=== PATIENT | female | born 1955 | race Caucasian/White ===

== ENCOUNTER 2022-07-12 15:15 | Emergency (ER) | payer MEDICARE, MEDICAID, SELFPAY ==
[2022-07-12] VITALS (31 sets, daily range): BP systolic 138–232; BP diastolic 81–118; PULSE 69–87; RESP 18; TEMP 36.6; O2SAT 96–100; BMI 26.0
--- NOTE | 2022-07-12 18:28 | CT_ITS ---
Patient: SONA PALOMARES Facility:?[facility] Patient ID:?[id number] Site Patient ID:?[id number]. Site :?1955 Study:?CT-Neck Angio Angio CTA HEAD AND NECK-07/12/2022 7:55:57 PM Ordering Physician:?Cherry Dumont Final Report: INDICATION: Acute stroke, left facial numbness, headache, hypertension. TECHNIQUE: CTA neck with contrast bolus tracking and 3D MIP reconstruction. FINDINGS: There are very subtle irregularities of the right ICA that are reminiscent of fibromuscular dysplasia, versus motion artifact. There is no significant carotid or vertebral artery stenosis or dissection. The soft tissues of the neck are within normal limits. The cervical spine is in normal alignment. IMPRESSION: No significant carotid or vertebral artery stenosis or dissection. Please note that all CT scans at this facility use dose modulation, iterative reconstruction, and/or weight-based dosing when appropriate to reduce radiation dose to as low as reasonably achievable. Dictated by Juan F Romero MD @ 07/13/2022 8:20:02 AM Signed by:?Juan F Romero MD @07/13/2022 8:20:02 AM (Electronic Signature)
--- NOTE | 2022-07-12 18:28 | CT_ITS ---
Patient: SONA PALOMARES Facility:?[facility] Patient ID:?[id number] Site Patient ID:?[id number]. Site :?1955 Study:?CT-Head Angio Angio CTA HEAD AND NECK-07/12/2022 7:55:08 PM Ordering Physician:Emerald Dumont Final Report: INDICATION: Acute stroke, left facial numbness, headache, hypertension. TECHNIQUE: CTA head with contrast bolus tracking and 3D MIP reconstruction. FINDINGS: There is normal opacification of the intracranial vasculature. There is no large vessel occlusion. No aneurysm is identified. IMPRESSION: Unremarkable head CTA. Please note that all CT scans at this facility use dose modulation, iterative reconstruction, and/or weight-based dosing when appropriate to reduce radiation dose to as low as reasonably achievable. Dictated by Juan F Romero MD @ 07/13/2022 8:18:21 AM Signed by:?Juan F Romero MD @07/13/2022 8:18:21 AM (Electronic Signature)
--- NOTE | 2022-07-12 18:32 | ED.GENADULT ---
HPI - General Adult General Time Seen by Provider: 18:25 Date Seen: 07/12/22 Chief complaint: Headache/Migraine Stated complaint: Head Pain/face Numbness Time Seen by Provider: 07/12/22 18:17 Source: patient and RN notes reviewed Mode of arrival: ambulatory Limitations: no limitations History of Present Illness HPI narrative: Patient is a 67-year-old female coming in with concern of her left face being numb earlier today, like she had had anesthesia but now resolved. Last week she had this episode of severe intense pain in her head that lasted for minutes. It was quite extreme. It went away and did not reoccur. Today though she noticed a dull left head ache and then some sharp shooting pains in the left side of her head at times. The left facial numbness is gone now. She has noted no visual changes, no speech problems, no difficulty with ambulation or using her arms. She had no fevers or chills. She had a cardiac ablation before and is on atorvastatin for her cholesterol. She takes a full aspirin daily. She is never been diagnosed with high blood pressure hypertension. She is having absolutely no chest pain, no abdominal pain with this. Related Data Allergies Allergy/AdvReac Type Severity Reaction Status Date / Time morphine Allergy Verified 07/12/22 15:38 Review of Systems Status of ROS: Reports: 10 or more systems reviewed and unremarkable except as noted in History and below PFSH PFS Social History Smoking Status: Never smoker Do you use any of these nicotine containing products: None Second hand tobacco smoke exposure: No How often do you have a drink containing alcohol: 2-4 times a month How many standard drinks containing alcohol do you have on a typical day: 1 or 2 How often do you have six or more drinks on one occasion: Less than monthly AUDIT-C Alcohol total score: 3 Non-prescribed substance use: denies use service: No Exam Const: Vital Signs, click to edit/add: Vital Signs - 24 hr 07/12/22 15:39 07/12/22 18:28 07/12/22 18:05 Temperature 98 F Pulse Rate Pulse Rate [Pulse Oximeter] 78 85 Respiratory Rate 18 Blood Pressure Blood Pressure [Ri ght Upper Arm] 182/86 H 232/116 H Pulse Oximetry 99 99 Oxygen Delivery Me thod Room Air 07/12/22 18:15 07/12/22 18:30 07/12/22 18:32 Temperature Pulse Rate 82 77 76 Pulse Rate [Pulse Oximeter] Respiratory Rate Blood Pressure 207/118 H Blood Pressure [Ri ght Upper Arm] Pulse Oximetry 97 100 98 Oxygen Delivery Me thod 07/12/22 18:42 07/12/22 18:45 07/12/22 18:46 Temperature Pulse Rate 74 76 81 Pulse Rate [Pulse Oximeter] Respiratory Rate Blood Pressure 179/91 H 170/86 H Blood Pressure [Ri ght Upper Arm] Pulse Oximetry 98 99 98 Oxygen Delivery Me thod 07/12/22 18:51 07/12/22 18:30 07/12/22 18:52 Temperature Pulse Rate 75 70 Pulse Rate [Pulse Oximeter] 76 Respiratory Rate Blood Pressure 170/86 H Blood Pressure [Ri ght Upper Arm] 207/118 H Pulse Oximetry 98 100 Oxygen Delivery Me thod 07/12/22 18:56 07/12/22 18:57 07/12/22 19:00 Temperature Pulse Rate 71 69 73 Pulse Rate [Pulse Oximeter] Respiratory Rate Blood Pressure 154/81 H Blood Pressure [Ri ght Upper Arm] Pulse Oximetry 97 98 98 Oxygen Delivery Me thod 07/12/22 19:01 07/12/22 19:15 07/12/22 19:16 Temperature Pulse Rate 71 73 Pulse Rate [Pulse Oximeter] Respiratory Rate Blood Pressure 152/82 H 152/82 H Blood Pressure [Ri ght Upper Arm] Pulse Oximetry 99 96 97 Oxygen Delivery Me thod 07/12/22 19:17 07/12/22 19:30 07/12/22 19:32 Temperature Pulse Rate 69 72 Pulse Rate [Pulse Oximeter] Respiratory Rate Blood Pressure 151/82 H Blood Pressure [Ri ght Upper Arm] Pulse Oximetry 99 96 96 Oxygen Delivery Me thod 07/12/22 19:58 07/12/22 20:00 07/12/22 20:01 Temperature Pulse Rate 82 87 80 Pulse Rate [Pulse Oximeter] Respiratory Rate Blood Pressure 163/84 H 154/81 H Blood Pressure [Ri ght Upper Arm] Pulse Oximetry 97 97 97 Oxygen Delivery Me thod Documenting provider has reviewed patient's vital signs: yes (When I am in with her her most recent blood pressures in the 230/116 range) Common normals: no apparent distress, average body habitus, oriented x3, no limitations, healthy appearing, alert and well nourished General appearance: cooperative, comfortable and well kempt HENMT: Common normals: normocephalic, head/scalp atraumatic, hearing grossly normal bilaterally, external ears normal, EAC's normal, TM's normal bilaterally, external nose normal, nasal mucous membranes and turbinates normal, moist oral mucous membranes, oropharynx normal, dentition normal and gingiva normal Head and scalp: normocephalic and atraumatic Nose: external nose normal and nasal mucous membranes and turbinates normal External ear: external ears normal External auditory canal: EAC's normal Tympanic membrane: TM's normal bilaterally Eye: Common normals: PERRL, EOMs intact bilaterally, conjunctivae normal and no scleral icterus Conjunctiva: conjunctiva(e) normal Pupil: PERRL Neck & C-Spine: Common normals: full ROM, no lymphadenopathy, supple, no meningeal signs, no JVD and thyroid normal Thyroid: thyroid normal Resp: Common normals: normal respiratory effort, no retractions, no use of accessory muscles and clear to auscultation bilaterally Auscultation: clear to auscultation bilaterally Cardio: Common normals: no JVD, regular rate, regular rhythm, S1 normal heart sound, S2 normal heart sound, no gallops, no clicks and no murmurs Rate: regular rate Rhythm: regular rhythm Heart sounds: S1 normal and S2 normal GI: Common normals: Normal to inspection, nondistended, normoactive bowel sounds present, soft to palpation, non-tender, no hepatosplenomegaly and no masses Palpation: soft and no hepatosplenomegaly Neuro: Common normals: oriented x3, CN's II-XII intact bilaterally, moves all extremities, no focal motor deficits, no sensory deficits noted and gait normal Sensorium/orientation: alert Meningeal signs: no meningeal signs Speech: speech normal Psych: Appearance: well kempt Course Course Hospital Course: A.m. concerned that this patient has elevated blood pressure could represent a vascular phenomenon like dissection. We will do a head CT and then follow through with CTA of head and neck. I am going to give her 5 mg IV labetalol and see how she tolerates this, can give further doses if need be. She has no evidence of any stroke at this point and that is not my primary concern for her. Will do appropriate labs. Reevaluation(s) Reevaluation #1: Reviewed with patient her normal head CT and the normal angio imaging on CT of her head neck. Her daughter is here now to. She did go on her mom's medical chart and she actually is on valsartan/hydrochlorothiazide for hypertension. Patient was remembering her 's medications. She still has a bit of a left posterior achy headache but her face no longer feels flushed. Her blood pressure is much improved. We did discuss primary headache disorder possibly causing her to become anxious and have pain, labile hypertension which can develop wit patients. In any event her left headache does seem like this might be a primary headache. Her blood pressure is back into the 130s, 150s systolic which is much improved. We will do 15 mg IV Toradol for her headache and then she wants to try to go home. I think this is reasonable. She has an appointment with her provider tomorrow which she should keep. They can follow-up on her blood pressure and see if her medication needs any adjusting. Time: 20:32 Vital Signs Vital signs: Initial Vital Signs Temperature 98 F 07/12/22 15:39 Temperature Source Temporal Artery Scan 07/12/22 15:39 Pulse Rate 78 07/12/22 15:39 Pulse Rhythm 07/12/22 15:39 Respiratory Rate 18 07/12/22 15:39 Blood Pressure 182/86 H 07/12/22 15:39 Blood Pressure Mean 118 07/12/22 15:39 Blood Pressure Position Sitting 07/12/22 15:39 Pulse Oximetry 99 07/12/22 15:39 Oxygen Delivery Method 07/12/22 15:39 Vital Signs Temperature 98 F 07/12/22 15:39 Pulse Rate 78 07/12/22 15:39 Respiratory Rate 18 07/12/22 15:39 Blood Pressure 182/86 H 07/12/22 15:39 Pulse Oximetry 99 07/12/22 15:39 Oxygen Delivery Method 07/12/22 15:39 Temperature 98 F 07/12/22 15:39 Pulse Rate 80 07/12/22 20:01 Respiratory Rate 18 07/12/22 15:39 Blood Pressure 154/81 H 07/12/22 20:01 Pulse Oximetry 97 07/12/22 20:01 Oxygen Delivery Method 07/12/22 15:39 Medical Decision Making Lab Data Lab results reviewed: Yes I reviewed the patient's lab results Labs: Lab Results 07/12/22 07/12/22 07/12/22 Range/Units 18:30 18:30 18:30 WBC 6.78 (4.50-11.00) K/uL RBC 4.86 (4.00-5.20) m/uL Hgb 14.5 (12.0-16.0) gm/dL Hct 43.4 (33.0-51.0) % MCV 89 (80-100) fL MCH 30 (26-34) pg MCHC 33 (32-36) gm/dL RDW Coeff of Nayan 13.1 (11.5-15.5) % Plt Count 331 (140-440) K/uL Neut % (Auto) 59.6 (42.0-72.0) % Lymph % (Auto) 28.6 (20-44) % Lipscomb % (Auto) 7.8 (0.0-11.0) % Eos % (Auto) 2.7 (0.0-7.0) % Baso % (Auto) 1.2 (0.0-3.0) % Neut # (Auto) 4.04 (1.7-7.0) K/uL Lymph # (Auto) 1.94 (0.90-2.90) K/uL Lipscomb # (Auto) 0.50 (0.00-0.90) K/UL Eos # (Auto) 0.18 (0.00-0.50) K/uL Baso # (Auto) 0.08 (0.00-0.30) K/uL Abs Immat Gran (auto) 0.01 (0.00-0.30) K/uL ESR (2-20) mm/hr D-Dimer Quant (PE/DVT) 0.67 H (0.00-0.50) ug/ml Sodium 139 (135-149) mmol/L Potassium 3.4 L (3.6-5.1) mmol/L Chloride 104 (96-114) mmol/L Carbon Dioxide 23 (20-32) mmol/L BUN 13 (7-30) mg/dL Creatinine 0.6 (0.5-1.5) mg/dL Estimated Creat Clear 52.51 Estimated GFR 100 ml/min Glucose 108 (60-115) mg/dL Calcium 10.1 (8.4-10.6) mg/dL C-Reactive Protein < 0.5 L (0.5-1.0) mg/dL 07/12/22 Range/Units 18:31 WBC (4.50-11.00) K/uL RBC (4.00-5.20) m/uL Hgb (12.0-16.0) gm/dL Hct (33.0-51.0) % MCV (80-100) fL MCH (26-34) pg MCHC (32-36) gm/dL RDW Coeff of Nayan (11.5-15.5) % Plt Count (140-440) K/uL Neut % (Auto) (42.0-72.0) % Lymph % (Auto) (20-44) % Lipscomb % (Auto) (0.0-11.0) % Eos % (Auto) (0.0-7.0) % Baso % (Auto) (0.0-3.0) % Neut # (Auto) (1.7-7.0) K/uL Lymph # (Auto) (0.90-2.90) K/uL Lipscomb # (Auto) (0.00-0.90) K/UL Eos # (Auto) (0.00-0.50) K/uL Baso # (Auto) (0.00-0.30) K/uL Abs Immat Gran (auto) (0.00-0.30) K/uL ESR 8 (2-20) mm/hr D-Dimer Quant (PE/DVT) (0.00-0.50) ug/ml Sodium (135-149) mmol/L Potassium (3.6-5.1) mmol/L Chloride (96-114) mmol/L Carbon Dioxide (20-32) mmol/L BUN (7-30) mg/dL Creatinine (0.5-1.5) mg/dL Estimated Creat Clear Estimated GFR ml/min Glucose (60-115) mg/dL Calcium (8.4-10.6) mg/dL C-Reactive Protein (0.5-1.0) mg/dL Imaging Data CT scan - head: Attestation: I have reviewed the pertinent imaging results. Radiologist's impression: Patient: SONA PALOMARES Facility:?[facility] Patient ID:?[id number] Site Patient ID:?[id number]. Site :?1955 Study:?CT Head WITHOUT-07/12/2022 7:52:39 PM Ordering Physician:Emerald Dumont Final Report: Indication: Left-sided facial numbness, left head pain and elevated blood pressure Technique: Volumetric multidetector CT images of the head were obtained without the administration of low osmolar intravenous contrast. Comparison: None available Findings: There is no intra-axial or extra-axial fluid collection. There is no mass effect or midline shift. There is age-related cortical atrophy with mild sulcal widening and ex vacuo dilatation of the lateral ventricles. There are chronic small vessel disease changes in the subcortical and periventricular white matter without lost loving-white differentiation. The orbits and their contents are grossly within normal limits. The bony calvarium is grossly intact. The paranasal sinuses are clear. The mastoid air cells are well aerated. Impression: 1. Age-related changes of the brain without acute intracranial abnormality. Please note that all CT scans at this facility use dose modulation, iterative reconstruction, and/or weight-based dosing when appropriate to reduce radiation dose to as low as reasonably achievable. Dictated by Win Tirado MD @ 07/12/2022 8:11:16 PM (Electronic Signature) CT- Other: Attestation: I have reviewed the pertinent imaging results. Radiologist's impression: Patient: SONA PALOMARES Facility:?[facility] Patient ID:?[id number] Site Patient ID:?[id number]. Site :?1955 Study:?CT Head Angio Angio CTA HEAD AND NECK-07/12/2022 7:55:08 PM Ordering Physician:Emerald Dumont Preliminary Report: The skullbase carotid arteries are patent. The anterior cerebral and middle cerebral arteries are patent with a somewhat truncated right M1 segment and early trifurcation. The basilar artery is patent. The posterior cerebral arteries are patent. The vertebral arteries are patent. Dictated by Win Tirado MD @ 07/12/2022 8:14:13 PM Read by:?Win Tirado MD @ 07/12/2022 20:14:19 ECG Data Attestation: I personally reviewed and interpreted this ECG as follows: (Sinus rhythm with sinus arrhythmia, 83 beats per minute. No ischemia. QT corrected 441 milliseconds.) Prior ECG tracings: not available for review Critical Care Time Critical Care Time Critical Care Time: No Discharge Plan Discharge Clinical Impression: Hypertensive urgency, Headache Condition: Stable Instructions: Acute Headache (ED), Hypertensive Crisis (ED) Additional Instructions: Keep your clinic appointment for tomorrow. If you have any residual headache can take Tylenol and/or ibuprofen per bottle directions as needed. Drink adequate fluids as this can help with headaches. Should you have any return of your symptoms that you had prior with your escalated blood pressure, please seek re-evaluation. Activity Level: Activity as Tolerated Discharge Diet: Heart Healthy (2 gm sodium, low fat) Stand Alone Forms: [employer] Info Instructions
[2022-07-12] MEDS: LABETALOL HCL 5 MG/ML inj IVP (18:42)
[2022-07-12 18:56] LABS: Basophils Absolute Auto 0.08 K/uL (0.00-0.30); Basophils Percent Auto 1.2 % (0.0-3.0); Eosinophils Absolute Auto 0.18 K/uL (0.00-0.50); Eosinophils Percent Auto 2.7 % (0.0-7.0); Hematocrit 43.4 % (33.0-51.0); Hemoglobin* 14.5 gm/dL (12.0-16.0); Immature Granulocytes Abs Auto 0.01 K/uL (0.00-0.30); Lymphocytes Absolute Auto 1.94 K/uL (0.90-2.90); Lymphocytes Percent Auto 28.6 % (20-44); Mean Corpuscular HGB Conc 33 gm/dL (32-36); Mean Corpuscular Hemoglobin 30 pg (26-34); Mean Corpuscular Volume 89 fL (80-100); Monocytes Percent Auto 7.8 % (0.0-11.0); Neutrophils Absolute Auto 4.04 K/uL (1.7-7.0); Neutrophils Percent Auto 59.6 % (42.0-72.0); Platelet Count* 331 K/uL (140-440); RDW Coefficient of Variation % 13.1 % (11.5-15.5); Red Blood Count 4.86 m/uL (4.00-5.20); Slide Review Reflex No; White Blood Count* 6.78 K/uL (4.50-11.00)
[2022-07-12 18:58] LABS: Chloride* 104 mmol/L (96-114); Sodium* 139 mmol/L (135-149)
[2022-07-12 18:59] LABS: Potassium* 3.4 mmol/L (3.6-5.1)
[2022-07-12 19:01] LABS: Creatinine* 0.6 mg/dL (0.5-1.5); Est. Creatinine Clearance* 52.51; Estimated Glomerular Filt Rate 100 ml/min
[2022-07-12 19:02] LABS: Blood Urea Nitrogen* 13 mg/dL (7-30); Calcium* 10.1 mg/dL (8.4-10.6); Carbon Dioxide* 23 mmol/L (20-32); Glucose* 108 mg/dL (60-115)
[2022-07-12 19:03] LABS: D Dimer Quantitative* 0.67 ug/ml (0.00-0.50)
[2022-07-12 19:17] LABS: C Reactive Protein* < 0.5 mg/dL (0.5-1.0)
--- NOTE | 2022-07-12 19:38 | CRLHL7_ITS ---
For Patients: As a result of the Century Cures Act, medical imaging exams and procedure reports are released immediately into your electronic medical record. You may view this report before your referring provider. If you have questions, please contact your health care provider. Indication: Left-sided facial numbness, left head pain and elevated blood pressure Technique: Volumetric multidetector CT images of the head were obtained without the administration of low osmolar intravenous contrast. Comparison: None available Findings: There is no intra-axial or extra-axial fluid collection. There is no mass effect or midline shift. There is age-related cortical atrophy with mild sulcal widening and ex vacuo dilatation of the lateral ventricles. There are chronic small vessel disease changes in the subcortical and periventricular white matter without lost loving-white differentiation. The orbits and their contents are grossly within normal limits. The bony calvarium is grossly intact. The paranasal sinuses are clear. The mastoid air cells are well aerated. Impression: 1. Age-related changes of the brain without acute intracranial abnormality. Please note that all CT scans at this facility use dose modulation, iterative reconstruction, and/or weight-based dosing when appropriate to reduce radiation dose to as low as reasonably achievable. Dictated by Win Tirado MD @ 07/12/2022 8:11:16 PM (Electronically Signed)
[2022-07-12 19:56] LABS: Erythrocyte SedimentationRate* 8 mm/hr (2-20)
[2022-07-12] MEDS: KETOROLAC 15 MG/ML inj IVP (20:50)
== END 2022-07-12 21:02 | disposition home or self-care (01) ==
PROVIDERS: Emergency Provider Family Medicine
DX: R51.9 Headache, unspecified (principal); I16.0 Hypertensive urgency
CPT/HCPCS: 36415; 70450; 70496; 70498; 80048; 85025; 85379; 85651; 86140; 93005; 94761; 96374; 99284; 99285; J1885; Q9967

== ENCOUNTER 2023-01-16 11:23 | Emergency (ER) | payer MEDICARE, MEDICAID, SELFPAY ==
[2023-01-16 11:29] VITALS: BP 175/88; PULSE 91; RESP 20; TEMP 36.8; O2SAT 97; BMI 27.5
--- NOTE | 2023-01-16 11:57 | CRLHL7_ITS ---
For Patients: As a result of the Cures Act, medical imaging exams and procedure reports are released immediately into your electronic medical record. You may view this report before your referring provider. If you have questions, please contact your health care provider. INDICATION: Chest pain. TECHNIQUE: Chest 1 views. COMPARISON: None. FINDINGS: Lungs: Normal lung volume. No consolidation. The tracheobronchial tree and hilar structures are unremarkable. Pleura: No pleural effusion or pneumothorax. Heart and Mediastinum: Normal heart size. The great vessels of the thorax are unremarkable. Bones: No acute displaced osseous process. IMPRESSION: No consolidation. Dictated by Ricardo Ashraf MD @ 01/16/2023 1:23:02 PM (Electronically Signed)
--- NOTE | 2023-01-16 12:14 | ED.GENADULT ---
HPI - General Adult General Date Seen: 01/16/23 Chief complaint: Chest Pain Stated complaint: chest pain, high BP Time Seen by Provider: 01/16/23 11:49 Source: patient Mode of arrival: ambulatory Limitations: no limitations History of Present Illness HPI narrative: Patient is a 67-year-old woman who presents for evaluation of an episode of chest pain today. 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 She says out of the blue she developed pain across her chest which she says was severe at the time. She says it felt like a pressure sensation, a it was hard to take a deep breath. It went across her entire chest it did not radiate to her back, abdomen or neck. She said that she felt a slight bit of numbness in her right jaw but that was very brief, felt lightheaded for a 2nd or 2 but did not have palpitations or syncope. Entire episode lasted about a minute and then resolved completely and has not recurred. She does not have any lingering pain. She went to the school nurse and they noted her blood pressure was elevated at 185 systolic. She does have a history of hypertension but says it is generally well controlled. She has been seen here once for uncontrolled hypertension and says that it just improved without specific treatment. She denies any recent illness. She has not had unusual leg pain or swelling. She has not had any recent travel or immobility. No fevers or cough. No exertional chest pain. She does not smoke. Drinks occasionally on the weekends. No other substance use. Related Data Home Medications Medication Instructions Recorded Confirmed aspirin 81 mg tablet,delayed 81 mg PO DAILY 01/16/23 01/16/23 release (Adult Aspirin Regimen) omeprazole 40 mg capsule,delayed 40 mg PO DAILY 01/16/23 01/16/23 release valsartan 160 1 tab PO DAILY 01/16/23 01/16/23 mg-hydrochlorothiazide 12.5 mg tablet Allergies Allergy/AdvReac Type Severity Reaction Status Date / Time morphine Allergy Verified 01/16/23 11:35 Review of Systems Status of ROS: Reports: 10 or more systems reviewed and unremarkable except as noted in History and below PFSH PFS Social History Smoking Status: Never smoker Do you use any of these nicotine containing products: None Second hand tobacco smoke exposure: No How often do you have a drink containing alcohol: 2-4 times a month How many standard drinks containing alcohol do you have on a typical day: 1 or 2 How often do you have six or more drinks on one occasion: Less than monthly AUDIT-C Alcohol total score: 3 Non-prescribed substance use: denies use service: No Exam Narrative: Exam Narrative: Vital signs as noted above. In general, an alert, well-appearing patient. Head: Normocephalic, atraumatic. Eyes: Pupils are equal reactive. Extraocular movements are full. Conjunctivae are normal. ENT: Mucous membranes are moist. Throat is normal. Neck: Supple without lymphadenopathy. Heart: Regular rate and rhythm. No murmur or rub. Lungs: Clear bilaterally. No increased work of breathing, crackles or wheezes. Abdomen: Soft and nontender. No organomegaly. Extremities: Well perfused. No edema. No calf tenderness. Pulses intact. Neurologic: Patient is alert and oriented to person and place. Speech is fluent. Face is symmetric. Moves all extremities equally. Affect: Normal. Skin: Warm and dry. Well perfused. Const: Vital Signs, click to edit/add: Vital Signs - 24 hr 01/16/23 11:29 01/16/23 14:00 Temperature 98.2 F Pulse Rate [Right Pulse Oximeter] 91 75 Respiratory Rate 20 14 Blood Pressure [Ri ght Upper Arm] 175/88 H 145/86 H Pulse Oximetry 97 97 Oxygen Delivery Me thod Room Air Room Air Course Course Hospital Course: Patient had an EKG on arrival which by my review shows a normal sinus rhythm, ventricular rate of 81 beats per minute. No acute ST segment changes. T-waves are unremarkable. She was asymptomatic while here in the emergency department. Duration of symptoms is fairly brief, but diagnostic considerations include angina, aortic dissection, PE, pneumothorax, biliary colic. Lab and x-ray are pending at this time. Chest x-ray by my review was negative the mediastinum was normal. Final radiology review was likewise negative. Initial troponin was 0, D-dimer was normal, and I think in the absence of any persistent pain at all, that my suspicion of something like aortic dissection is low enough that with a completely normal D-dimer I do not think she needs additional evaluation. CBC showed a normal white blood cell count of 7.3, normal hemoglobin of 13.8 and a normal platelet count. Metabolic panel and LFTs were unremarkable. A 2nd troponin was also 0. Discussed with her at this time I do not have a clear explanation for her pain. Would recommend primary care follow-up this week for re-evaluation of her blood pressure and discussion of her chest pain as to whether further testing in the form of a stress test is appropriate. Stressed to her that at this time we do not have a clear diagnosis and if she has recurrent pain, new symptoms such as significant shortness of breath, palpitations, lightheadedness or fainting, fever etcetera she should return to the emergency department for further evaluation. Vital Signs Vital signs: Initial Vital Signs Temperature 98.2 F 01/16/23 11:29 Temperature Source Temporal Artery Scan 01/16/23 11:29 Pulse Rate 91 01/16/23 11:29 Pulse Rhythm Regular 01/16/23 11:29 Respiratory Rate 20 01/16/23 11:29 Blood Pressure 175/88 H 01/16/23 11:29 Blood Pressure Mean 117 01/16/23 11:29 Blood Pressure Position Sitting 01/16/23 11:29 Pulse Oximetry 97 01/16/23 11:29 Oxygen Delivery Method Room Air 01/16/23 11:29 Vital Signs Temperature 98.2 F 01/16/23 11:29 Pulse Rate 91 01/16/23 11:29 Respiratory Rate 20 01/16/23 11:29 Blood Pressure 175/88 H 01/16/23 11:29 Pulse Oximetry 97 01/16/23 11:29 Oxygen Delivery Method Room Air 01/16/23 11:29 Temperature 98.2 F 01/16/23 11:29 Pulse Rate 75 01/16/23 14:00 Respiratory Rate 14 01/16/23 14:00 Blood Pressure 145/86 H 01/16/23 14:00 Pulse Oximetry 97 01/16/23 14:00 Oxygen Delivery Method Room Air 01/16/23 14:00 Medical Decision Making Lab Data Labs: Lab Results 01/16/23 01/16/23 Range/Units 12:16 13:26 WBC 7.31 (4.50-11.00) K/uL RBC 4.63 (4.00-5.20) m/uL Hgb 13.8 (12.0-16.0) gm/dL Hct 40.9 (33.0-51.0) % MCV 88 (80-100) fL MCH 30 (26-34) pg MCHC 34 (32-36) gm/dL RDW Coeff of Nayan 12.9 (11.5-15.5) % Plt Count 288 (140-440) K/uL Neut % (Auto) 63.9 (42.0-72.0) % Lymph % (Auto) 24.6 (20-44) % [place] % (Auto) 7.8 (0.0-11.0) % Eos % (Auto) 2.6 (0.0-7.0) % Baso % (Auto) 1.0 (0.0-3.0) % Neut # (Auto) 4.67 (1.7-7.0) K/uL Lymph # (Auto) 1.80 (0.90-2.90) K/uL [place] # (Auto) 0.60 (0.00-0.90) K/UL Eos # (Auto) 0.19 (0.00-0.50) K/uL Baso # (Auto) 0.07 (0.00-0.30) K/uL D-Dimer Quant (PE/DVT) 0.37 (0.00-0.50) ug/ml Sodium 138 (135-149) mmol/L Potassium 3.9 (3.6-5.1) mmol/L Chloride 108 (96-114) mmol/L Carbon Dioxide 23 (20-32) mmol/L BUN 21 (7-30) mg/dL Creatinine 0.7 (0.5-1.5) mg/dL Estimated Creat Clear 50.47 Estimated GFR 96 ml/min Glucose 117 H (60-115) mg/dL Calcium 9.3 (8.4-10.6) mg/dL Total Bilirubin 0.4 (0.1-1.5) mg/dL Direct Bilirubin 0.2 (0.0-0.5) mg/dL AST 25 (12-35) U/L ALT 26 (4-35) U/L Alkaline Phosphatase 81 (40-150) U/L Total Protein 7.5 (6.0-8.3) g/dL Albumin 4.4 (3.3-5.0) g/dL POC Troponin I 0.00 L 0.00 L (0.01-0.04) ng/ml Discharge Plan Discharge Clinical Impression: Chest pain Patient Disposition: Home, Self-Care Condition: Improved Instructions: Chest Pain (DC) Additional Instructions: Continue your current medications. Please follow-up with your primary clinic in the next week for recheck of your blood pressure and further discussion of your chest pain to determine whether additional evaluation is needed. If you have recurrent pain, new symptoms such as significant shortness of breath, fever, fainting in the meantime, return to the emergency department at any time. Activity Level: No Restrictions Discharge Diet: Regular Prescriptions: No Action valsartan-hydrochlorothiazide 160-12.5 mg tablet 1 tab PO DAILY omeprazole 40 mg capsule,delayed release(DR/EC) 40 mg PO DAILY aspirin [Adult Aspirin Regimen] 81 mg tablet,delayed release (DR/EC) 81 mg PO DAILY Follow Up/Referrals: Provider,Not a Local [Primary Care Provider] - Stand Alone Forms: [employer] Info Instructions
--- OUTSIDE RECORDS SUMMARY | 2023-01-16 12:24 | XMS_ITS | Continuity of Care Document ---
Author Name Unknown Organization [facility] Address [address] [address] [place] [address] Phone Care Team Providers Care Fabrication And Assembly Supervisor Name Role Phone Anuel Thomas MD Unavailable Unavailable Allergies, Adverse Reactions, Alerts Substance Reaction Status Criticality MORPHINE SULFATE chest tightness/trouble breathin Acti ve No Information Medications Medication Instructions Dosage Effective Dates (start - stop) Status Comments Diovan HCT 160 mg-12.5 mg Tab take 1 tablet by oral route every day 1.00 tablet - Active MiralaxBisacodylMagCit Colon Prep Use as directed - No Longer Active Procedures Procedure Date Colonoscopy Flex; Dx (sep Pro) 12 Advance Directives Directive Yes / No Effective Date File Name Resuscitation Not Answered N/A N/A Life Support Not Answered N/A N/A Intubation Not Answered N/A N/A Antibiotics Not Answered N/A N/A IV Fluid Support Not Answered N/A N/A Tube Feed Not Answered N/A N/A Other Directive N/A N/A WARNING:The information contained in this section is historical and is provided for information only and does not constitute a legal document or any assurance that the information is still accurate. Please verify the information with the castro of the legal document before using it for clinical purposes. Encounters Encounter Description Practice Location Reason(s) For Visit Diagnoses Date Provider Providers Copied on Encounter [facility], [address] [address], [place], [id number], [place] tel:[phone] Kristin [facility] Colon Cancer ScreeningColon Cancer Screening 2 William Agee. [address], [place], [place], [id number], [place]. tel:[phone] Referring Provider: Leonardo Linda MD S, [address], [address]. tel:[phone] [facility], [address] [address], [place], [place], [id number], tel:[phone] [facility] Procedures No Information 2 Carla Estrella. [address], [place], [place], [id number], [place]. tel:[phone] Referring Provider: Leonardo Polo, [address], [place], [address]. tel:[phone] Family History Family Member Type Diagnosis Age At Onset No Information Payers Payer name Insurance type Covered republican ID Delfino head(s) [facility] [id number] Social History Type Description Quantity Date Captured Comments Alcohol Use Details Unknown Caffeine Use Details Unknown Tobacco Use Status No Information Smoking Status No Information Sex Female Chief Complaint And Reason For Visit No Information Reason For Referral Reason For Referral No Information Plan Of Treatment Date Type Action Status No Information History Of Present Illness Encounter Date Complaint History Of Prese nt Illness No Information Functional Status Date Functional Assessmen t No Information Instructions Date Instruction Additional Infor mation No Information Assessments Type Assessment Date No Information Patient Care Teams Name Effective Dates (start - stop) Status Members No Information
[2023-01-16 12:26] LABS: Basophils Absolute Auto 0.07 K/uL (0.00-0.30); Eosinophils Absolute Auto 0.19 K/uL (0.00-0.50); Eosinophils Percent Auto 2.6 % (0.0-7.0); Hematocrit 40.9 % (33.0-51.0); Hemoglobin* 13.8 gm/dL (12.0-16.0); Immature Granulocytes Abs Auto 0.01 K/uL (0.00-0.30); Immature Granulocytes Pct Auto 0.1 %; Lymphocytes Percent Auto 24.6 % (20-44); Mean Corpuscular HGB Conc 34 gm/dL (32-36); Mean Corpuscular Hemoglobin 30 pg (26-34); Mean Corpuscular Volume 88 fL (80-100); Monocytes Percent Auto 7.8 % (0.0-11.0); Neutrophils Absolute Auto 4.67 K/uL (1.7-7.0); Neutrophils Percent Auto 63.9 % (42.0-72.0); Platelet Count* 288 K/uL (140-440); RDW Coefficient of Variation % 12.9 % (11.5-15.5); Red Blood Count 4.63 m/uL (4.00-5.20); White Blood Count* 7.31 K/uL (4.50-11.00)
--- OUTSIDE RECORDS SUMMARY | 2023-01-16 12:26 | XMS_ITS | Continuity of Care Document ---
Author Name Unknown Organization [facility] Address [address] [address] [place] [address] Phone Care Team Providers Care General Machine Operator Name Role Phone Anuel Thomas MD Unavailable [...] Diagnoses Date Provider Providers Copied on Encounter [facility], [address] [address], [place], [id number], [place] tel:[phone] Kristin [facility] Colon Cancer ScreeningColon Cancer Screening 2 William Agee. [address], [place], [place], [id number], [place]. tel:[phone] Referring Provider: Leonardo Linda MD S, [address], [place], [address]. tel:[phone] [facility], [address] [address], [place], [place], [id number], tel:[phone] [facility] Procedures No Information 2 Carla Estrella. [address], [place], [place], [id number], [place]. tel:[phone] Referring Provider: Leonardo Polo, [address], [place], [address]. tel:[phone] Family History Family Member Type Diagnosis Age At Onset No Information Payers Payer name Insurance type Covered democrat ID Delfino head(s) [facility] [id number] Social History Type Description Quantity Date Captured [...]
[2023-01-16 12:40] LABS: Slide Review Reflex No
[2023-01-16 12:48] LABS: Chloride* 108 mmol/L (96-114); Potassium* 3.9 mmol/L (3.6-5.1); Sodium* 138 mmol/L (135-149)
[2023-01-16 12:49] LABS: Albumin* 4.4 g/dL (3.3-5.0)
[2023-01-16 12:51] LABS: Blood Urea Nitrogen* 21 mg/dL (7-30); Calcium* 9.3 mg/dL (8.4-10.6); Carbon Dioxide* 23 mmol/L (20-32); Creatinine* 0.7 mg/dL (0.5-1.5); Est. Creatinine Clearance* 50.47; Estimated Glomerular Filt Rate 96 ml/min; Glucose* 117 mg/dL (60-115)
[2023-01-16 12:52] LABS: Alanine Aminotransferase* 26 U/L (4-35); Alkaline Phosphatase* 81 U/L (40-150); Aspartate Amino Transferase* 25 U/L (12-35); Bilirubin Direct* 0.2 mg/dL (0.0-0.5); Bilirubin Total* 0.4 mg/dL (0.1-1.5); D Dimer Quantitative* 0.37 ug/ml (0.00-0.50); Total Protein* 7.5 g/dL (6.0-8.3)
[2023-01-16 14:00] VITALS: BP 145/86; PULSE 75; RESP 14; O2SAT 97
== END 2023-01-16 14:01 | disposition home or self-care (01) ==
PROVIDERS: Emergency Provider Emergency Medicine
DX: R07.89 Other chest pain (principal)
CPT/HCPCS: 36415; 71045; 80048; 80076; 84484; 85025; 85379; 93005; 99284